=== PATIENT | male | born 1980 | race Caucasian/White ===

== ENCOUNTER 2022-03-07 16:04 | Observation (INO) | payer OTHER ==
[~2022-03-07] VITALS: Ht 175.3 cm; Wt 85.3 kg
[2022-03-07 16:33] LABS: BASOPHILS % (AUTO) 0.1 % (0.0-5.0); EOSINOPHILS % (AUTO) 2.8 % (0.0-8.0); HEMATOCRIT 36.1 % (42-54); LYMPHOCYTES % (AUTO) 19.6 % (21.0-51.0); MEAN CORPUSCULAR HEMOGLOBIN 27.1 pg (27.0-33.0); MEAN CORPUSCULAR HGB CONC 32.7 g/dL (32.0-36.0); MONOCYTES % (AUTO) 10.8 % (3.0-13.0); NEUTROPHILS % (AUTO) 66.4 % (40.0-77.0); PLATELET COUNT (AUTO) 232 K/uL (130-400); RED BLOOD CELL COUNT(AUTO) 4.35 MIL/uL (4.50-6.20); RED CELL DISTRIBUTION WIDTH 14.1 % (11.0-15.5)
[2022-03-07 16:48] LABS: CREATININE 1.4 mg/dL (0.5-1.5); POTASSIUM 3.5 mmol/L (3.5-5.1)
[2022-03-07 17:11] LABS: ALBUMIN 3.9 g/dL (3.5-5.0); BILIRUBIN,TOTAL 0.6 mg/dL (0.2-1.0); TOTAL PROTEIN, SERUM 7.3 g/dL (6.0-8.3)
[2022-03-07] MEDS: 0.9%NACL 1000ML 1,000 ML IV SCH (19:27)
[2022-03-07] MEDS ORDERED: ONDANSETRON 4MG INJ IV PRN ×2 (19:30→21:30)
[2022-03-07] MEDS ORDERED: ACETAMINOPHEN 325 MG TAB PO PRN ×2 (19:30→21:30)
[2022-03-07 19:42] LABS: APPEARANCE,URINE Clear (CLEAR); BILIRUBIN,URINE Negative (NEGATIVE); COLOR,URINE Yellow (YELLOW); GLUCOSE, URINE (UA) Negative (NEGATIVE); KETONES,URINE Negative (NEGATIVE); LEUKOCYTE ESTERASE ,URINE Trace (NEGATIVE); NITRATE,URINE Negative (NEGATIVE); OCCULT BLOOD,URINE Negative (NEGATIVE); PH,URINE 5.5 (5.0-8.0); PROTEIN,URINE Trace mg/dL (NEGATIVE)
[2022-03-07 19:50] LABS: AMPHET/METH SCREEN,URINE POSITIVE (NEGATIVE); BARBITURATE SCREEN, URINE NEGATIVE (NEGATIVE); BENZODIAZEPINES SCREEN,URINE NEGATIVE (NEGATIVE); CANNABINOID SCREEN,URINE POSITIVE (NEGATIVE); COCAINE SCREEN,URINE POSITIVE (NEGATIVE); OPIATE SCREEN,URINE POSITIVE (NEGATIVE); PHENCYCLIDINE SCREEN,URINE NEGATIVE (NEGATIVE)
[2022-03-07 20:18] LABS: BACTERIA,URINE Rare /HPF (None Seen); SQUAMOUS EPITHELIAL CELL,UR Rare /HPF (0-2)
[2022-03-07] MEDS: FAMOTIDINE 20MG TAB PO SCH (20:48)
[2022-03-08 00:06] VITALS: BP 130/77
[2022-03-08] MEDS: 0.9%NACL 1000ML 1,000 ML IV SCH (00:32)
[2022-03-08] MEDS ORDERED: METH10OR11 PO (00:35)
[2022-03-08] MEDS ORDERED: IBUP-1493 PO (00:35)
[2022-03-08] MEDS ORDERED: OMEP40CA21 PO (00:35)
[2022-03-08 04:08] VITALS: BP 108/50
[2022-03-08 05:28] LABS: BASOPHILS % (AUTO) 0.4 % (0.0-5.0); EOSINOPHILS % (AUTO) 4.8 % (0.0-8.0); HEMATOCRIT 33.3 % (42-54); LYMPHOCYTES % (AUTO) 28.1 % (21.0-51.0); MEAN CORPUSCULAR HEMOGLOBIN 26.4 pg (27.0-33.0); MEAN CORPUSCULAR HGB CONC 30.6 g/dL (32.0-36.0); NEUTROPHILS % (AUTO) 56.3 % (40.0-77.0); PLATELET COUNT (AUTO) 170 K/uL (130-400); RED BLOOD CELL COUNT(AUTO) 3.87 MIL/uL (4.50-6.20); RED CELL DISTRIBUTION WIDTH 14.1 % (11.0-15.5); WHITE BLOOD COUNT (AUTO) 5.2 K/uL (4.8-10.8)
[2022-03-08 06:14] LABS: CREATININE 0.9 mg/dL (0.5-1.5); PHOSPHORUS 3.4 mg/dL (2.5-4.9); POTASSIUM 3.8 mmol/L (3.5-5.1)
[2022-03-08 08:00] VITALS: BP 131/61
[2022-03-08] MEDS: FAMOTIDINE 20MG TAB PO SCH (08:06)
[2022-03-08] MEDS ORDERED: ENOXAPARIN SODIUM 40 MG/0.4 ML SYRINGE SQ SCH ×2 (09:00)
[2022-03-08 11:59] VITALS: BP 117/55
== END 2022-03-08 11:17 | disposition home or self-care (01) ==
LOC: EDH 16:04 → EDHIP 16:05 → UNDOADMOB 19:16 → EDHIP 19:16 → 3BH 23:20
PROVIDERS: ADMIT Internal Medicine; ATTEND Internal Medicine
DX: E86.1 Hypovolemia (principal); E86.0 Dehydration; T67.5XXA Heat exhaustion, unspecified, initial encounter; M62.82 Rhabdomyolysis; N17.9 Acute kidney failure, unspecified; F11.20 Opioid dependence, uncomplicated; F12.10 Cannabis abuse, uncomplicated; F15.10 Other stimulant abuse, uncomplicated; F43.10 Post-traumatic stress disorder, unspecified; F32.A Depression, unspecified; K21.9 Gastro-esophageal reflux disease without esophagitis; F17.210 Nicotine dependence, cigarettes, uncomplicated; W19.XXXA Unspecified fall, initial encounter; X30.XXXA Exposure to excessive natural heat, initial encounter; Y93.89 Activity, other specified; Y92.89 Other specified places as the place of occurrence of the external cause; Z79.899 Other long term (current) drug therapy
CPT/HCPCS: 36415 ×2; 70450; 71045; 80048; 80053; 80305; 81001; 82550 ×2; 83735; 84100; 84484; 85025 ×2; 93005; 96360; 96361 ×2; 96372; 99285; G0378 ×16; J1650

== ENCOUNTER 2025-01-02 09:49 | Emergency (ER) | payer OTHER ==
[~2025-01-02] VITALS: Ht 175.3 cm; Wt 104.3 kg
[~2025-01-02 09:49] MED LIST: FOLI1 PO; LEVE-43 PO; METH10OR11 PO; OMEP40CA21 PO; PANT40TA PO; THIA100T91 PO
[2025-01-02] MEDS: ketOROlac 30MG VIAL (30MG/ML) IM ONE (10:17)
--- NOTE | 2025-01-02 11:50 | HMCIMG ---
THORACIC SPINE RADIOGRAPHS - 3 VIEWS INDICATION: Back pain COMPARISON: None FINDINGS: AP lateral and swimmer's views No acute fracture or subluxation identified. Vertebral body heights and disc spaces are well-maintained. No intrinsic osseous abnormality detected. IMPRESSION: No acute fracture or subluxation noted.
--- NOTE | 2025-01-02 11:50 | HMCIMG ---
PORTABLE CHEST RADIOGRAPH INDICATION: left thoracic pain COMPARISON: None FINDINGS: Heart size is normal. The pulmonary vascularity and meghan appear normal. No abnormal pulmonary parenchymal opacity or consolidation identified. No significant pleural effusion noted. No pneumothorax detected. IMPRESSION: No radiographic evidence for any acute cardiopulmonary process.
--- NOTE | 2025-01-02 12:38 | ERN ---
General Chief Complaint: Rib Pain Stated Complaint: INTERCOSTAL PAIN Time Seen by MD: 09:52 Source: patient History of Present Illness Initial Comments PATIENT IS A 44-YEAR-OLD MALE COMING IN TO BE EVALUATED FOR BACK PAIN. PATIENT STATES THAT THE BACK PAIN IS CONCERNING BECAUSE HE HAS A HISTORY OF A LUNG ABSCESS. PATIENT STATES THAT THE PAIN BEGAN A COUPLE OF DAYS AGO. Allergies: Coded Allergies: No Known Drug Allergies (Unverified Allergy, Unknown, 03/07/22) Home Meds Active Scripts Folic Acid (Folvite) 1 Mg Tab, 1 MG PO DAILY for 30 Days, #30 TAB 0 Refills Prov:MARLI VALENTINO Jr., MD 10/27/22 Pantoprazole Sodium (Protonix) 40 Mg Tablet.dr, 40 MG PO DAILY for 30 Days, #30 TAB 0 Refills Prov:MARLI VALENTINO Jr., MD 10/27/22 Levetiracetam (Keppra) 500 Mg Tablet, 500 MG PO BID for SEIZURE PROPHYLAXIS for 30 Days, #60 TAB 0 Refills Prov:MARLI VALENTINO Jr., MD 10/27/22 Thiamine HCl (Vitamin B-1) 100 Mg Tablet, 300 MG PO DAILY for 30 Days, #30 TAB 0 Refills Prov:MARLI VALENTINO Jr., MD 10/27/22 Reported Medications Methadone HCl (Methadone HCl) 10 Mg/1 Ml Oral.conc, 78 MG PO DAILY, ML 03/08/22 Omeprazole (Omeprazole) 40 Mg Capsule.dr, 40 MG PO DAILY, CAP 03/08/22 Past Medical History Past Medical History: No Pertinent History Medical History Other: PTSD, HERNIATED DISKS L5/L6, DRUG ABUSE Past Surgical History: None Surgical History Other: RT LUNG SX FOR ABSCESS REMOVAL, Family History Family History: Negative Social History Social History: Drugs, ETOH ROS Dictation CONSTITUTIONAL: NO CHILLS, NO FEVER, NO WEAKNESS, NO DIAPHORESIS, NO MALAISE. HEAD/FACE: NO SIGNS OF TRAUMA. EENT: NO EYE PAIN, NO BLURRED VISION, NO TEARING, NO DOUBLE VISION, NO EAR PAIN, NO EAR DISCHARGE, NO NOSE PAIN, NO NASAL CONGESTION, NO THROAT PAIN, NO THROAT SWELLING, NO MOUTH PAIN. RESPIRATORY: NO COUGH, NO ORTHOPNEA, NO SOB, NO STRIDOR, NO WHEEZING. CARDIOVASCULAR: NO CHEST PAIN, NO EDEMA, NO PALPITATIONS, NO SYNCOPE. GASTROINTESTINAL/ABDOMINAL: NO ABDOMINAL PAIN, NO CONSTIPATION, NO DIARRHEA, NO NAUSEA, NO VOMITING. GENITOURINARY: NO ABNORMAL DISCHARGE, NO DYSURIA, NO FREQUENT URINATION, NO HEMATURIA. NO COMPLAINTS OF PAIN IN THE GENITALS. MUSCULOSKELETAL: NO BACK PAIN, NO GOUT, NO JOINT PAIN, NO JOINT SWELLING, NO MUSCLE PAIN, NO MUSCLE STIFFNESS, NO NECK PAIN. INTEGUMENTARY: NO CHANGE IN COLOR, NO CHANGE IN HAIR/NAILS, NO DRYNESS, NO LESION, NO LUMPS, NO RASH. NEUROLOGICAL/PSYCH: NO ANXIETY, NOT DEPRESSED, NO EMOTIONAL PROBLEM, NO HEADACHE, NO NUMBNESS, NO PRE-EXISTING DEFICIT, NO HISTORY OF SEIZURES, NO TREMORS, NO WEAKNESS. HEMATOLOGIC/LYMPHATIC: NOT ANEMIC, NO HISTORY OF BLOOD CLOTS, NO APPARENT BLEEDING, NO BRUISING, GLANDS NOT SWOLLEN. ALL SYSTEMS NEGATIVE, EXCEPT NOTED. Physical Exam Physical Exam Dictation VITAL SIGNS: REVIEWED. GENERAL APPEARANCE: ALERT, ORIENTED X3, NO ACUTE DISTRESS, OBESE. HEAD AND FACE: NON-TRAUMATIC. EYES: PERRL, PINK CONJUNCTIVAS, EYELID NO TRAUMA, ANTERIOR CHAMBER CLEAR. EARS: PINNAS INTACT AND NO SIGNS OF TRAUMA OR ERYTHEMA. EAR CANALS CLEAR AND NO DISCHARGE. TMS NO ERYTHEMA. NOSE: NO DISCHARGE, NO BLEEDING. OROPHARYNX: MOUTH NORMAL, TEETH NO CARIES, TONGUE PINK. PHARYNX CLEAR, NO ERYTHEMA. TONSILS NO EXUDATES, NO ABSCESSES NOTED. MUCOUS MEMBRANE MOIST. NECK: SUPPLE, NON-TENDER, NO THYROMEGALY, NO MASSES, NO JVD, NO BRUITS. BREAST: DEFERRED. CHEST: NO TENDERNESS, NO CREPITUS, NO PARADOXICAL MOVEMENT, NO RETRACTIONS. LUNGS: CLEAR, WELL-VENTILATED, SYMMETRIC, NO RALES, NO WHEEZING, NO RHONCHI, NO STRIDOR, GOOD BREATH SOUNDS BILATERALLY. HEART: REGULAR RATE, REGULAR RHYTHM, NO MURMUR, NO GALLOPS. VASCULAR: NO PERIPHERAL EDEMA. ABDOMEN: SOFT, POSITIVE BOWEL SOUNDS, NONDISTENDED, NO GUARDING, NONTENDER, NO REBOUND, NO MASSES NO HEPATOMEGALY, NO SPLENOMEGALY, NO SANTOS'S SIGN, NO HERNIAS. RECTAL: DEFERRED. GENITAL: DEFERRED. NEUROLOGICAL: NORMAL SPEECH, GROSS MOTOR FUNCTION INTACT, GROSS SENSORY FUNCTION INTACT. MUSCULOSKELETAL: NECK NONTENDER, FULL RANGE OF MOTION, SOFTWARE DEVELOPMENT MANAGER, FULL RANGE OF MOTION. EXTREMITIES: NONTENDER, FULL RANGE OF MOTION. SKIN: COLOR PINK, DRY, NO TURGOR, NO RASH, NO LACERATIONS, NO ABRASIONS, NO CONTUSIONS. LYMPHATICS: DEFERRED. Results Laboratory and Microbiology Labs Reviewed?: Yes EKG/XRAY/US/CT/MRI X-RAY Comment [place] [address] [place], [place] [id number] IMAGING REPORT Signed PATIENT: RUDDY SHARP MR#: [id number] : 1980 SEX: M AGE: 44 LOCATION: [facility] ORDER 1002 STATUS: REG ER [facility] REPORT#: [id number] SERVICE 1004 REASON: left thoracic pain ORDERING PHYSICIAN: DEDRICK KOROMA MD PROCEDURE: THOR 3VW - THORACIC SPINE 3VWS THORACIC SPINE RADIOGRAPHS - 3 VIEWS INDICATION: Back pain COMPARISON: None FINDINGS: AP lateral and swimmer's views No acute fracture or subluxation identified. Vertebral body heights and disc spaces are well-maintained. No intrinsic osseous abnormality detected. IMPRESSION: No acute fracture or subluxation noted. DICTATED BY: SIDDHARTHA FORTE MD DATE: 01/02/25 1146 ELECTRONICALLY SIGNED BY: SIDDHARTHA FORTE MD DATE: 01/02/25 1150 IMAGING REPORT Signed PATIENT: RUDDY SHARP MR#: [id number] : 1980 SEX: M AGE: 44 LOCATION: [facility] ORDER 1002 STATUS: REG ER REPORT#: [id number] SERVICE 1001 REASON: left thoracic pain ORDERING PHYSICIAN: DEDRICK KOROMA MD PROCEDURE: CXR1VW - CHEST 1VW PORTABLE CHEST RADIOGRAPH INDICATION: left thoracic pain COMPARISON: None FINDINGS: Heart size is normal. The pulmonary vascularity and meghan appear normal. No abnormal pulmonary parenchymal opacity or consolidation identified. No significant pleural effusion noted. No pneumothorax detected. IMPRESSION: No radiographic evidence for any acute cardiopulmonary process. DICTATED BY: SIDDHARTHA FORTE MD DATE: 01/02/25 1147 ELECTRONICALLY SIGNED BY: SIDDHARTHA FORTE MD DATE: 01/02/25 1150 MDM MDM: DIFFERENTIAL DIAGNOSIS: MUSCLE STRAIN, PNEUMONIA, PATIENT IS A 44-YEAR-OLD MALE COMING IN TO BE EVALUATED FOR BACK PAIN. PATIENT STATES THAT HE WAS CONCERNED BECAUSE HE HAS A HISTORY OF A ABSCESS IN HIS RIGHT LUNG. X-RAY DID NOT DISCLOSE ACUTE FINDINGS. ED Course Orders Procedure Category Date Status Time Chest 1vw RAD 01/02/25 Resulted 10:01 Thoracic Spine 3vws RAD 01/02/25 Resulted 10:01 Ketorolac PHA 01/02/25 Complete Tromethamine 30mg/Ml 10:30 Current Medications Medications (Trade) Dose Ordered Sig/Gemini Route PRN Reason Start Time Stop Time Status Last Admin Dose Admin Ketorolac Tromethamine (toRADol) 30 mg ONCE ONCE IM 01/02/25 10:30 01/02/25 10:31 DC 01/02/25 10:17 Vital Signs Date Time Temp Pulse Resp B/P (MAP) Pulse Ox O2 Delivery O2 Flow Rate FiO2 01/02/25 09:50 98.1 77 16 149/89 98 Room Air 0 DX & DISP Disposition: Discharge Decision to Admit Time: 12:40 Departure Impression: Primary Impression: Muscle strain Condition: Stable Scripts Naproxen (Naproxen) 500 Mg Tablet 1 TAB PO BID for pain for 7 Days, #14 TAB 0 Refills Prov: DEDRICK KOROMA MD 01/02/25 Additional Instructions: FOLLOW-UP WITH PRIMARY CARE PROVIDER IN 1 TO 2 DAYS. TAKE MEDICATIONS DIRECTED HERE IN THE EMERGENCY ROOM. OKAY TO CONTINUE HOME MEDICATIONS UNLESS OTHERWISE DISCUSSED DURING YOUR VISIT IN THE EMERGENCY ROOM TODAY. RETURN TO YOUR NEAREST EMERGENCY ROOM IF SYMPTOMS WORSEN OR IF THERE IS NO IMPROVEMENT. CALL 911 IF YOU NEED IMMEDIATE ASSISTANCE. TAKE TYLENOL [id number] NEEDED AND IF NO CONTRAINDICATIONS ARE PRESENT. INCREASE ORAL HYDRATION. A WOUND CULTURE OR URINE CULTURE WAS ORDERED HERE IN THE EMERGENCY ROOM DEPARTMENT PLEASE FOLLOW-UP WITH PRIMARY CARE PROVIDER AND ADVISE THEM TO GET REPEAT PORTS FROM OUR FACILITY. IF YOU HAD ANY ALBA WRAP/SPLINTS THAT WERE APPLIED HERE, PLEASE DO NOT REMOVE THEM UNTIL YOU SEE YOUR PRIMARY CARE OR SPECIALTY. REFERRALS: Referrals: NONE (PCP) JOSELINE BARNES MD Time of Disposition: 12:41 DEDRICK KOROMA MD Jan 02, 2025 12:38
[2025-01-02] MEDS ORDERED: NAPR-1194 PO (12:42)
[2025-01-02 12:44] VITALS: BP 149/89; PULSE 74; RESP 16; TEMP 98.1; O2SAT 97
== END 2025-01-02 12:45 | disposition home or self-care (01) ==
LOC: EDH 09:49
DX: S39.012A Strain of muscle, fascia and tendon of lower back, initial encounter (principal); Z79.899 Other long term (current) drug therapy; X58.XXXA Exposure to other specified factors, initial encounter; Y93.89 Activity, other specified; Y92.89 Other specified places as the place of occurrence of the external cause; Y99.8 Other external cause status
CPT/HCPCS: 99284; 71045; 72072; 96372; J1885